=== PATIENT | female | born 1935 | race Caucasian/White ===

== ENCOUNTER 2017-12-05 13:52 | Day surgery (SDC) | payer MEDICARE, OTHER ==
[~2017-12-05] VITALS: Ht 165.1 cm; Wt 79.4 kg
[~2017-12-05 13:52] MED LIST: ATOR20; Amlodipine Bes2.5 MG; Janumet 50-1,01 EACH; METO25ER; OMEPRAZOLE MAGN20 MG; Ocuvite Preser1 EACH; ZESTORETIC 20-121 EA
== END 2017-12-05 16:04 | disposition home or self-care (01) ==
LOC: ORSCSDS 13:52
PROVIDERS: Ophthalmology
PROC: 08RK3JZ Replacement of Left Lens with Synthetic Substitute, Percutaneous Approach (ICD-10-PCS; principal; 2017-12-05 15:30)
DX: H25.12 Age-related nuclear cataract, left eye (principal); I10 Essential (primary) hypertension; E11.9 Type 2 diabetes mellitus without complications; Z79.84 Long term (current) use of oral hypoglycemic drugs; Z79.899 Other long term (current) drug therapy
CPT/HCPCS: 82947; J2250; J3010; J7040; V2632

== ENCOUNTER 2017-12-26 13:51 | Day surgery (SDC) | payer MEDICARE, OTHER ==
[~2017-12-26] VITALS: Ht 167.6 cm; Wt 79.6 kg
== END 2017-12-26 16:04 | disposition home or self-care (01) ==
LOC: ORSCSDS 13:51
PROVIDERS: Ophthalmology
PROC: 08RJ3JZ Replacement of Right Lens with Synthetic Substitute, Percutaneous Approach (ICD-10-PCS; principal; 2017-12-26 15:30)
DX: H25.11 Age-related nuclear cataract, right eye (principal); I10 Essential (primary) hypertension; E11.9 Type 2 diabetes mellitus without complications; Z79.84 Long term (current) use of oral hypoglycemic drugs; Z79.899 Other long term (current) drug therapy
CPT/HCPCS: 82947; J2250; J3010; V2632